=== PATIENT | female | born 1945 | race Caucasian/White ===

== ENCOUNTER 2017-07-13 18:49 | Emergency (ER) | payer MEDICARE ==
[2017-07-13 19:05] VITALS: RESP 18
--- NOTE | 2017-07-13 19:16 | ED ---
Fall HPI - General Source: EMS Mode of arrival: EMS - History of Present Illness MD Complaint: fall -: minutes(s) Fall From: down stairs (#) When Fall Occurred: just prior to arrival Fall Witnessed: yes, by family Place Fall Occurred: home Loss of Consciousness: yes, minute(s) (<1) Prolonged Down Time?: no Symptoms Prior to Fall: none Location: face, neck, chest Severity: moderate Quality: aching Context: tripped/slipped Associated Symptoms: neck pain <Geo Schmidt - Last Filed: 07/13/17 19:12> <Krishna Velásquez - Last Filed: 07/13/17 21:52> - General Chief Complaint: Fall Stated Complaint: Fall Time Seen by Provider: 07/13/17 19:02 - History of Present Illness Initial Comments: This patient is a 72-year-old woman who presents to be evaluated after she had a fall. The patient states that she was coming [place] of [place] and going down some steps when she slipped and fell. She states that she struck the left side of her cheek. She is having some left facial pain, little bit of left sided neck pain and some left rib pains. Patient was unsure whether she had loss consciousness but believe she may have briefly. She denied any other type of premonitory symptoms, including no chest pain, dyspnea , diaphoresis, palpitations. She has not had chest pain following. (Geo Schmidt) - Related Data Home Medications Medication Instructions Recorded Confirmed Escitalopram [Lexapro] 5 mg PO DAILY 07/13/17 07/13/17 Previous Rx's Medication Instructions Recorded HYDROcodone/APAP 5-325MG [[address] 1 tab PO Q6HR PRN #12 tab 07/13/17 5-325] Allergies Allergy/AdvReac Type Severity Reaction Status Date / Time No Known Allergies Allergy Verified 07/13/17 19:47 Review of Systems ROS Other: All systems not noted in ROS Statement are negative. Constitutional: Denies: weakness Eyes: Denies: eye pain, vision change ENT: Denies: ear pain, epistaxis Respiratory: Denies: cough, dyspnea, hemoptysis Cardiovascular: Reports: chest pain (Left ribs). Denies: palpitations, orthopnea, edema, syncope Gastrointestinal: Denies: abdominal pain, vomiting, diarrhea Genitourinary: Denies: dysuria, hematuria Musculoskeletal: Denies: back pain Skin: Denies: rash Neurological: Reports: headache. Denies: weakness, numbness <BrayanGeo - Last Filed: 07/13/17 19:12> ROS Other: All systems not noted in ROS Statement are negative. <Krishna Velásquez - Last Filed: 07/13/17 21:52> ROS Statement: Those systems with pertinent positive or pertinent negative responses have been documented in the HPI. Past Medical History Past Medical History: No Reported History History of Any Multi-Drug Resistant Organisms: None Reported Past Surgical History: No Surgical Hx Reported Past Psychological History: Anxiety Smoking Status: Never smoker Past Alcohol Use History: None Reported Past Drug Use History: None Reported <BrayanGeo - Last Filed: 07/13/17 19:12> General Exam Limitations: no limitations General appearance: alert, in no apparent distress Head exam: Present: atraumatic, normocephalic, normal inspection Eye exam: Present: PERRL, EOMI, periorbital swelling, periorbital tenderness ( Over the left zygoma). Absent: scleral icterus, conjunctival injection, nystagmus ENT exam: Present: normal oropharynx, TM's normal bilaterally, normal external ear exam Neck exam: Present: normal inspection, other (Cervical collar) Respiratory exam: Present: normal lung sounds bilaterally, chest wall tenderness (Mild left rib tenderness in the midaxillary line). Absent: respiratory distress, wheezes, rales, rhonchi, stridor Cardiovascular Exam: Present: regular rate, normal rhythm, normal heart sounds. Absent: systolic murmur, diastolic murmur, rubs, gallop GI/Abdominal exam: Present: soft. Absent: distended, tenderness, guarding, rebound, mass, pulsatile mass, hernia Extremities exam: Present: normal inspection, normal capillary refill. Absent: pedal edema, calf tenderness Back exam: Present: normal inspection. Absent: CVA tenderness (R), CVA tenderness (L), vertebral tenderness Neurological exam: Present: alert, oriented X3, CN II-XII intact. Absent: motor sensory deficit Skin exam: Present: warm, dry, intact, normal color. Absent: rash <Geo Schmidt - Last Filed: 07/13/17 19:12> Medical Decision Making <Geo Schmidt - Last Filed: 07/13/17 19:12> <Krishna Velásquez - Last Filed: 07/13/17 21:52> - Medical Decision Making Patient was signed out from Dr. Garibay pending chest x-ray. I did reevaluate the patient. She had a mechanical fall: On the stairs. There was positive had trouble with LOC. She has a contusion and abrasion over the left zygomatic process. She also complains of some left chest wall pain. CT of facial bones is negative, CT of the head is negative for intracranial hemorrhage, CT of the C -spine is negative for fracture or subluxation. Patient is overall very well- appearing neurologic exam is nonfocal. No respiratory distress. X-ray obtained of the chest and ribs shows no acute fracture. Patient will be discharged home with close outpatient follow-up. Diagnosis: Concussion, chest wall contusion (Krishna Velásquez) Disposition <Geo Schmidt - Last Filed: 07/13/17 19:12> <Krishna Velásquez - Last Filed: 07/13/17 21:52> Clinical Impression: Concussion, Chest wall contusion Disposition: HOME SELF-CARE Condition: Good Instructions: Rib Fracture (ED), Concussion (ED) Prescriptions: HYDROcodone/APAP 5-325MG [[address] 5-325] 1 tab PO Q6HR PRN #12 tab PRN Reason: Pain Referrals: Nonstaff,Physician [REFERRING] - 1-2 days Deborah Bullard MD [STAFF PHYSICIAN] - 1-2 days
--- NOTE | 2017-07-13 19:51 | CT ---
EXAMINATION TYPE: CT brain mehdi ritter DATE OF EXAM: 07/13/2017 COMPARISON: NONE HISTORY: Patient complains of fall with blow to left cheek. Patient experienced LOC of 3-[address] DLP: 967.1 mGycm Automated exposure control for dose reduction was used. TECHNIQUE: CT scan of the head and cervical spine are performed without contrast. FINDINGS: There is cerebral cortical atrophy. There is no mass effect nor midline shift. There is n o sign of intracranial hemorrhage. The calvarium is intact. The cervical vertebra have normal alignment. There is narrowing at C5-6 disc space with mild spurring of the endplates. There is no sign of spinal stenosis. Facet joints are intact. Skull base is intact . IMPRESSION: Cerebral atrophy. Otherwise negative CT scan of the brain. Mild spondylosis at C5-6. No fracture.
--- NOTE | 2017-07-13 19:52 | CT ---
EXAMINATION TYPE: CT facial bones wo con DATE OF EXAM: 07/13/2017 COMPARISON: NONE HISTORY: Patient complains of fall with blow to left cheek. Patient experienced LOC of 3-[address] DLP: 550.1 mGycm Automated exposure control for dose reduction was used. TECHNIQUE: CT scan of the sinuses is performed without contrast, axial images are obtained, coronal r eformatted images are also reviewed. FINDINGS: The mandibular ring is intact. Temporomandibular joints appear normal. Nasal bone is intact . The temporal bones appear intact. There is fairly normal aeration of the paranasal sinuses. Orbital margins are intact. Maxilla is inta ct. There is no sign of a blowout fracture. The zygomatic arches appear normal. IMPRESSION: Negative CT scan of the facial bones.
[2017-07-13] MEDS ORDERED: HYDROcodone/APAP 5-325MG 1 EACH TAB PO STA (20:36)
--- NOTE | 2017-07-13 21:13 | XR ---
EXAMINATION TYPE: XR ribs LT w pa chest xray DATE OF EXAM: 07/13/2017 COMPARISON: NONE HISTORY: Pain TECHNIQUE: 5 views FINDINGS: There is no heart failure nor confluent pneumonic infiltrate. There is mild linear density at the left lung base consistent with subsegmental atelectasis. I see no pleural effusion or pneumoth orax. The left ribs appear intact. IMPRESSION: Mild subsegmental atelectasis at the left lung base. No fracture seen. Normal heart.
[2017-07-13 22:29] VITALS: BP 131/62; PULSE 67; TEMP 97.6
== END 2017-07-13 22:29 | disposition home or self-care (01) ==
LOC: EC 18:49
DX: S06.0X9A Concussion with loss of consciousness of unspecified duration, initial encounter (principal); S20.212A Contusion of left front wall of thorax, initial encounter; S00.83XA Contusion of other part of head, initial encounter; M54.2 Cervicalgia; F41.9 Anxiety disorder, unspecified; Z79.899 Other long term (current) drug therapy; W10.9XXA Fall (on) (from) unspecified stairs and steps, initial encounter; Y92.009 Unspecified place in unspecified non-institutional (private) residence as the place of occurrence of the external cause
CPT/HCPCS: 70450; 70486; 72125; 99284